=== PATIENT | male | born 1975 | race Caucasian/White ===

== ENCOUNTER 2017-01-14 23:22 | Emergency (ER) | payer OTHER ==
[~2017-01-14] VITALS: Ht 185.4 cm; Wt 70.3 kg
[2017-01-15] MEDS ORDERED: NORCO 5-325 TA1 EACH PO (01:40)
[2017-01-15] MEDS ORDERED: CIPRO500 MG PO (01:40)
== END 2017-01-15 01:53 | disposition home or self-care (01) ==
LOC: ED 23:22
DX: N45.1 Epididymitis (principal); Z91.030 Bee allergy status; Z88.8 Allergy status to other drugs, medicaments and biological substances
CPT/HCPCS: 76870; 81001; 87088; 87147; 99284

== ENCOUNTER 2020-06-10 07:31 | Emergency (ER) | payer OTHER ==
[~2020-06-10] VITALS: Ht 185.4 cm; Wt 70.3 kg
[~2020-06-10 07:31] MED LIST: CIPRO500 MG PO; NORCO 5-325 TA1 EACH PO; ONDANSETRON ODT8 MG PO; VENTOLIN HFA18 GM INH
== END 2020-06-10 08:12 | disposition home or self-care (01) ==
LOC: ED 07:31
DX: S39.012A Strain of muscle, fascia and tendon of lower back, initial encounter (principal); Z87.891 Personal history of nicotine dependence; Z91.030 Bee allergy status; Z91.048 Other nonmedicinal substance allergy status; X50.0XXA Overexertion from strenuous movement or load, initial encounter
CPT/HCPCS: 99283

== ENCOUNTER 2021-09-29 16:03 | Emergency (ER) | payer OTHER ==
[~2021-09-29] VITALS: Ht 185.4 cm; Wt 70.3 kg
== END 2021-09-29 18:32 | disposition home or self-care (01) ==
LOC: ED 16:03
DX: S83.92XA Sprain of unspecified site of left knee, initial encounter (principal); S16.1XXA Strain of muscle, fascia and tendon at neck level, initial encounter; S93.401A Sprain of unspecified ligament of right ankle, initial encounter; S20.212A Contusion of left front wall of thorax, initial encounter; N17.9 Acute kidney failure, unspecified; V27.4XXA Motorcycle driver injured in collision with fixed or stationary object in traffic accident, initial encounter
CPT/HCPCS: 36415; 70450; 71260; 72125; 73560; 73610; 80053; 83690; 85025; 99284-25; G0480; J7121; Q9967